=== PATIENT | female | born 1970 | race African-American/Black ===

== ENCOUNTER 2017-08-24 09:56 | Inpatient (IN) | payer OTHER ==
[2017-08-24 11:24] VITALS: BMI 28.4
--- NOTE | 2017-08-24 13:25 | HP ---
COWS - Scale Resting Pulse: 1= [place] 81-100 Sweatin=Flushed/Facial Moisture Restless Observation: 3= Extraneous Movement Pupil Size: 2= Moderately Dilated Bone or Joint Aches: 2= Severe Diffuse Aches Runny Nose/ Eye Tearin= Runny Nose/Eyes GI Upset > 30mins: 3= Vomiting/Diarrhea Tremor Observation: 2= Slight Tremor Visible Yawning Observation: 2= >3x During Session Anxiety or Irritability: 2=Irritable/Anxious Goose Flesh Skin: 0=Smooth Skin COWS Score: 21 Admission ROS BHS - HPI Chief Complaint: i need help to stop using heroin and cocaine Allergies/Adverse Reactions: Allergies Allergy/AdvReac Type Severity Reaction Status Date / Time No Known Allergies Allergy Verified 08/24/17 11:12 History of Present Illness: this 47 years old black female patient with heroin and cocaine dependence seeking detox,last treatment [facility] 2016 nicotine dependence asthma anxiety and depression longest period of sobriety 6 years Exam Limitations: No Limitations - Ebola screening Have you been sick,other than usual withdrawal symptoms: No - Review of Systems Constitutional: Loss of Appetite, Malaise, Night Sweats, Changes in sleep, Weakness EENT: reports: Tearing, Nose Congestion Respiratory: reports: No Symptoms reported, Other (asthma) Cardiac: reports: Palpitations GI: reports: Diarrhea, Nausea, Vomiting, Abdominal cramping : reports: No Symptoms Reported Musculoskeletal: reports: Back Pain, Joint Pain, Muscle Pain, Joint Stiffness Integumentary: reports: Dryness Neuro: reports: Headache, Tremors Endocrine: reports: No Symptoms Reported Hematology: reports: No Symptoms Reported Psychiatric: reports: No Sypmtoms Reported, Judgement Intact, Mood/Affect Appropiate, Orientated x3, Anxious, Depressed Patient History - Patient Medical History Hx Anemia: No Hx Asthma: Yes (on albuterol inhaler) Hx Chronic Obstructive Pulmonary Disease (COPD): No Hx Cancer: No Hx Cardiac Disorders: No Hx Congestive Heart Failure: No Hx Hypertension: Yes (no med) Hx Hypercholesterolemia: No Hx Pacemaker: No HX Cerebrovascular Accident: No Hx Seizures: No Hx Dementia: No Hx Diabetes: No Hx Gastrointestinal Disorders: No Hx Liver Disease: No Hx Genitourinary Disorders: No Hx Sexually Transmitted Disorders: No Hx Renal Disease (ESRD): No Hx Thyroid Disease: No Hx Human Immunodeficiency Virus (HIV): No (last 02/14 negative) Hx Hepatitis C: No Hx Depression: Yes (anxiety) Hx Suicide Attempt: No Hx Bipolar Disorder: No Hx Schizophrenia: No Other Medical History: no suicidal,no homicidal - Patient Surgical History Past Surgical History: Yes Hx Neurologic Surgery: No Hx Cataract Extraction: No Hx Cardiac Surgery: No Hx Lung Surgery: No Hx Breast Surgery: No Hx Breast Biopsy: No Hx Abdominal Surgery: No Hx Appendectomy: No Hx Cholecystectomy: No Hx Genitourinary Surgery: No Hx Section: No Hx Orthopedic Surgery: Yes (7yrs ago a titainium place to left toe.//torn maniscus) Other Surgical History: tonSillectomy at age 10. - PPD History Previous Implant?: Yes Documented Results: Negative w/proof Implanted On [facility] Admission?: Yes Date: 02/06/15 Results: 0 mm PPD to be Administered?: Yes - Reproductive History Patient is a Female of Child Bearing Age (11 -55 yrs old): Yes Last Menstrual Period: 07/31/17 Patient : No - Smoking Cessation Smoking history: Current every day smoker Have you smoked in the past 12 months: Yes Aproximately how many cigarettes per day: 10 Hx Chewing Tobacco Use: No Initiated information on smoking cessation: Yes 'Breaking Loose' booklet given: 08/24/17 - Substance & Tx. History Hx Alcohol Use: No Hx Substance Use: Yes Substance Use Type: Cocaine, Heroin Hx Substance Use Treatment: Yes ([facility] rehab 2016) - Substances Abused Heroin Route: Inhalation Frequency: Daily Amount used: 4 bags Age of first use: 29 Date of Last Use: 08/24/17 Cocaine Route: Inhalation Frequency: Daily Amount used: $50 Age of first use: 29 Date of Last Use: 08/23/17 Family Disease History - Family Disease History Family History: Denies Admission Physical Exam BHS - Vital Signs Vital Signs: Vital Signs - 24 hr 08/24/17 11:16 Temperature 97.2 F L Pulse Rate 95 H Respiratory 20 Rate Blood Pressure 124/90 - Physical General Appearance: Yes: Moderate Distress, Tremorous, Irritable, Sweating, Anxious HEENTM: Yes: Normal ENT Inspection, ALBA, Pharynx Normal Respiratory: Yes: Within Normal Limits, Lungs Clear, Normal Breath Sounds Neck: Yes: Within Normal Limits, Supple, Trachea in good position Breast: Yes: Breast Exam Deferred Cardiology: Yes: Within Normal Limits, Regular Rhythm, Regular Rate, S1, S2 Abdominal: Yes: Within Normal Limits, Normal Bowel Sounds, Non Tender, Soft Genitourinary: Yes: Within Normal Limits Back: Yes: Muscle Spasm Musculoskeletal: Yes: Back pain, Muscle Pain Extremities: Yes: Within Normal Limits, Normal Range of Motion, Tremors Neurological: Yes: pbx teacher II-XII NML intact, Fully Oriented, Alert, Motor Strength 5/5 Integumentary: Yes: Dry Lymphatic: Yes: Within Normal Limits - Diagnostic (1) Opioid dependence with withdrawal Current Visit: Yes Status: Chronic (2) Cocaine dependence Current Visit: Yes Status: Chronic Qualifiers: Substance use status: uncomplicated Qualified Code(s): F14.20 - Cocaine dependence, uncomplicated; F14.20 - Cocaine dependence, uncomplicated; F14.20 - Cocaine dependence, uncomplicated (3) PTSD (post-traumatic stress disorder) Current Visit: No Status: Chronic (4) Nicotine dependence Current Visit: Yes Status: Chronic Qualifiers: Nicotine product type: cigarettes Substance use status: uncomplicated Qualified Code(s): F17.210 - Nicotine dependence, cigarettes, uncomplicated; F17.210 - Nicotine dependence, cigarettes, uncomplicated (5) Asthma Current Visit: Yes Status: Chronic Qualifiers: Asthma severity: mild (6) Anxiety and depression Current Visit: Yes Status: Acute Cleared for Admission [facility] - Detox or Rehab [facility] Level of Care: Medically Managed Detox Regimen/Protocol: Methadone [facility] Breath Alcohol Content Breath Alcohol Content: 0 Urine Pregancy Test - Result Urine Test Results: Negative- NO Line Present Urine Drug Screen - Results Drug Screen Negative: No Urine Drug Screen Results: THC-Marijuana, WALTER-Cocaine, OPI-Opiates, OXY- Oxycodone
[2017-08-24] MEDS ORDERED: MAGNESIUM HYDROX 2400MG/30ML ORAL SUSPENSION 30 ML CUP PO PRN (13:46)
[2017-08-24] MEDS ORDERED: IBUPROFEN 400 MG TABLET (FP) PO PRN (13:46)
[2017-08-24] MEDS ORDERED: NICOTINE POLACRILEX 2 MG GUM BC PRN (13:46)
[2017-08-24] MEDS ORDERED: MAGNESIUM CITRATE 300 ML BOTTLE PO PRN (13:46)
[2017-08-24] MEDS ORDERED: hydrOXYzine PAMOATE 25 MG CAPSULE (FP) PO PRN (13:46)
[2017-08-24] MEDS ORDERED: diphenhydrAMINE HCL 50 MG CAPSULE PO PRN (13:46)
[2017-08-24] MEDS ORDERED: guaiFENesin/D-METHORPHAN HB 10 ML UNIT-DOSE CUPS PO PRN (13:46)
[2017-08-24] MEDS ORDERED: P-EPHED 60MG/TRIPROLIDI 2.5MG TABLET PO PRN (13:46)
[2017-08-24] MEDS ORDERED: MAG HYDROX/AL HYDROX/SIMETH 30 ML UNIT-DOSE CUP PO PRN (13:46)
[2017-08-24] MEDS ORDERED: ACETAMINOPHEN 325 MG TABLET (FP) PO PRN (13:46)
[2017-08-24] MEDS ORDERED: LOPERAMIDE HCL 2 MG CAPSULE PO PRN (13:46)
[2017-08-24] MEDS ORDERED: MENTHOL/PHENOL 1 EACH UD MM PRN (13:46)
[2017-08-24] MEDS ORDERED: ALBUTEROL SO4 18 GM HFA INHALER IH PRN (13:53)
[2017-08-24 14:14] LABS: HIV 1 & 2 AB NEGATIVE; HIV 1 AGp24 NEGATIVE
[2017-08-24] MEDS ORDERED: METHADONE HCL 10 MG TABLET (FOR DETOX USE ONLY) PO ONE ×2 (14:15→23:00)
--- NOTE | 2017-08-24 16:40 | CONSULT ---
[facility] Psychiatric Consult - Data Date of interview: 08/24/17 Admission source: [facility] Identifying data: Readmission to [facility] for this 47 y/o AA female seeking detox treatment on for heroin and cocaine dependence.Patient is single, a mother of four,domiciled (section 8),unemployed and supported on [facility] benefits. Substance Abuse History: Discussed in this session.Patient confirmed use of heroin and cocaine.See this [facility] report : Smoking history: Current every day smoker. Have you smoked in the past 12 months: Yes. Aproximately how many cigarettes per day: 10. Hx Chewing Tobacco Use: No. Initiated information on smoking cessation: Yes. 'Breaking Loose' booklet given: 08/24/17. - Substance & Tx. History. Hx Alcohol Use: No. Hx Substance Use: Yes. Substance Use Type : Cocaine, Heroin. Hx Substance Use Treatment: Yes ([facility] re[facility] 2016). - Substances Abused. Heroin. Route: Inhalation. Frequency: Daily. Amount used: 4 bags. Age of first use: 29. Date of Last Use: 08/24/17. Cocaine. Route: Inhalation. Frequency: Daily. Amount used: $50. Age of first use: 29. Date of Last Use: 08/23/17 Medical History: Consistent with bronchial asthma,hypertension and a history of orthosurgery for torn meniscus (left knee). Psychiatric History: Patient denies history of psychiatric hospitalizations.She reports a distant history of OPD care.Ms Carney indicates that she last took psychotropic medications (names not recalled) more than seven months ago.She mentions PTSD as her diagnosis." I used to see a psychiatrist in [place]." Patient is a poor and moderately sedated historian.No reported history of suicide attempts.Survey of pharmacy claims shows scripts for fluoxetine, sertraline,quetiapine and buspirone issued in .No recent pharmacy activity for psychotropic medications. Physical/Sexual Abuse/Trauma History: Not discussed.Patient declines. Additional Comment: Urine Drug Screen Results: THC-Marijuana, WALTER-Cocaine, OPI- Opiates, OXY-Oxycodone.Noted. Mental Status Exam - Mental Status Exam Alert and Oriented to: Time, Place, Person Cognitive Function: Grossly Intact Patient Appearance: Well Groomed Mood: Nervous Affect: Mood Congruent, Constricted Patient Behavior: Sedated (moderately sedated but conversant) Speech Pattern: Delayed, Slurred Voice Loudness: Normal Thought Process: Goal Oriented (follows instructions,performs simple tasks, gives coherent answers and asks pertinent questions) Thought Disorder: Not Present Hallucinations: Denies Suicidal Ideation: Denies Homicidal Ideation: Denies Insight/Judgement: Poor Sleep: Well (as per report) Appetite: Good (inquisitive about mealtimes schedule) Muscle strength/Tone: Normal Gait/Station: Other (slow but steady gait) Psychiatric Findings - Problem List ([place] 1, 2,3) (1) Opioid dependence with withdrawal Current Visit: Yes Status: Acute (2) Cocaine dependence Current Visit: Yes Status: Acute (3) Nicotine dependence Current Visit: Yes Status: Acute (4) Substance induced mood disorder Current Visit: Yes Status: Acute (5) Asthma Current Visit: Yes Status: Chronic - Initial Treatment Plan Initial Treatment Plan: Psychoeducation.Detoxification.Observation.
[2017-08-24] MEDS ORDERED: METHADONE HCL 10 MG TABLET (FOR DETOX USE ONLY) ONE (17:01)
[2017-08-24] MEDS: diazePAM 5 MG TABLET PO PRN (18:01)
[2017-08-24 22:23] LABS: URINE APPEARANCE TURBID; URINE BILIRUBIN NEGATIVE (NEGATIVE); URINE BLOOD NEGATIVE (NEGATIVE); URINE COLOR AMBER; URINE GLUCOSE (UA) NEGATIVE (NEGATIVE); URINE KETONE NEGATIVE (NEGATIVE); URINE NITRITE NEGATIVE (NEGATIVE); URINE PROTEIN 1+ (NEGATIVE); URINE UROBILINOGEN NEGATIVE mg/dL (0.2-1.0)
[2017-08-24] MEDS: THIAMINE HCL 100 MG TABLET (FP) PO SCH (22:24)
[2017-08-24 23:48] LABS: URINE BACTERIA MANY /hpf (NONE SEEN); URINE MUCUS 3+; URINE WBC MODERATE /hpf (3-5)
[2017-08-25] MEDS ORDERED: METHADONE HCL 10 MG TABLET (FOR DETOX USE ONLY) PO ONE (10:00)
[2017-08-25 10:03] LABS: MCH 29.8 pg (25.7-33.7); MCHC 32.2 g/dl (32.0-36.0); MEAN CELL VOLUME 92.3 fl (80-96); MEAN PLT VOLUME 10.5 fl (7.5-11.1); PLATELET COUNT 268 K/MM3 (134-434); RDW 14.5 % (11.6-15.6); WHITE BLOOD COUNT 9.3 K/mm3 (4.0-10.0)
[2017-08-25 10:31] LABS: ALBUMIN 3.6 g/dl (3.4-5.0); ANION GAP 7 (8-16); CALCIUM 8.5 mg/dL (8.5-10.1); CO2 30 mmol/L (21-32); GLUCOSE,RANDOM 94 mg/dL (74-106)
[2017-08-25 10:35] LABS: ALK PHOS 115 U/L (45-117); BILIRUBIN,TOTAL 0.3 mg/dL (0.2-1.0); CREATININE 0.9 mg/dL (0.55-1.02); SGOT/AST 16 U/L (15-37); SGPT/ALT 11 U/L (12-78); TOT PROT 7.5 g/dl (6.4-8.2)
[2017-08-25] MEDS: PRENATAL VITAMINS W/ FOLIC ACID TABLET (FP) PO SCH (10:47)
[2017-08-25] MEDS: diazePAM 5 MG TABLET PO PRN ×2 (10:47→22:56)
[2017-08-25] MEDS: NICOTINE 21 MG/24 HOURS TOPICAL PATCH TD SCH (10:47)
--- NOTE | 2017-08-25 10:48 | EKG ---
Test Reason : Blood Pressure : / mmHG Vent. Rate : 068 BPM Atrial Rate : 068 BPM P-R Int : 166 ms QRS Dur : 098 ms QT Int : 410 ms P-R-T Axes : 074 076 054 degrees QTc Int : 435 ms NORMAL SINUS RHYTHM WITH SINUS ARRHYTHMIA NORMAL ECG NO PREVIOUS ECGS AVAILABLE Confirmed by HECTOR TILLMAN, ALISHA ([id number]) on 08/25/2017 10:47:29 AM Referred By: Confirmed By:ALISHA YOUNG MD
[2017-08-25 10:50] LABS: URINE LEUK ESTERASE 1+ (NEGATIVE)
--- NOTE | 2017-08-25 11:13 | PN ---
S COWS - Scale Resting Pulse: 0= [place] 80 or Below Sweatin=Flushed/Facial Moisture Restless Observation: 1= Difficult to Sit Still Pupil Size: 0= Normal to Room Light Bone or Joint Aches: 2= Severe Diffuse Aches Runny Nose/ Eye Tearin= Nasal Congestion GI Upset > 30mins: 2= Nausea/Diarrhea Tremor Observation of Outstretched Hands: 2= Slight Tremor Visible Yawning Observation: 2= >3x During Session Anxiety or Irritability: 2=Irritable/Anxious Goose Flesh Skin: 3=Piloerection COWS Score: 17 BHS Progress Note (SOAP) Subjective: sweats shakes interrupted sleep agitation anxiety body aches Objective: 08/25/17 11:11 Vital Signs Temperature 99.8 F H 08/25/17 10:12 Pulse Rate 62 08/25/17 10:12 Respiratory Rate 16 08/25/17 10:12 Blood Pressure 110/67 08/25/17 10:12 O2 Sat by Pulse Oximetry (%) Laboratory Tests 08/24/17 08/24/17 08/25/17 11:50 22:10 06:00 WBC 9.3 D RBC 4.68 Hgb 13.9 D Hct 43.2 MCV 92.3 MCH 29.8 MCHC 32.2 RDW 14.5 Plt Count 268 D MPV 10.5 Sodium Potassium Chloride Carbon Dioxide Anion Gap BUN Creatinine Creat Clearance w eGFR Random Glucose Calcium Total Bilirubin AST ALT Alkaline Phosphatase Total Protein Albumin Urine Color Xochitl Urine Appearance Turbid Urine pH 5.0 Ur Specific [place] >= 1.030 H Urine Protein 1+ H Urine Glucose (UA) Negative Urine Ketones Negative Urine Blood Negative Urine Nitrite Negative Urine Bilirubin Negative Urine Urobilinogen Negative Ur Leukocyte Esterase 1+ H Urine WBC Moderate Ur Epithelial Cells Moderate Urine Bacteria Many Urine Mucus 3+ Urine Other See comment HIV 1&2 Antibody Screen Negative HIV P24 Antigen Negative 08/25/17 06:00 WBC RBC Hgb Hct MCV MCH MCHC RDW Plt Count MPV Sodium 138 Potassium 3.2 L D Chloride 101 Carbon Dioxide 30 Anion Gap 7 L BUN 7 D Creatinine 0.9 D Creat Clearance w eGFR > 60 Random Glucose 94 D Calcium 8.5 Total Bilirubin 0.3 AST 16 ALT 11 L Alkaline Phosphatase 115 Total Protein 7.5 Albumin 3.6 Urine Color Urine Appearance Urine pH Ur Specific [place] Urine Protein Urine Glucose (UA) Urine Ketones Urine Blood Urine Nitrite Urine Bilirubin Urine Urobilinogen Ur Leukocyte Esterase Urine WBC Ur Epithelial Cells Urine Bacteria Urine Mucus Urine Other HIV 1&2 Antibody Screen HIV P24 Antigen clue cells noted on u/a; flagyl ordered repeat u/a aaox3 lying in bed no acute distress Assessment: 08/25/17 11:13 withdrawal sx Plan: continue detox increase fluids f/u pending labs
[2017-08-25] MEDS ORDERED: FLU VACCINE QUAD 60 MCG/0.5 ML (MDV 17-18) IM ONE (12:00)
[2017-08-25] MEDS: POTASSIUM CHLORIDE TABS 20 MEQ TABLET.ER (FP) PO SCH (13:20)
[2017-08-25] MEDS: metroNIDAZOLE 250 MG TABLET PO SCH ×2 (13:22→22:54)
[2017-08-25] MEDS: THIAMINE HCL 100 MG TABLET (FP) PO SCH (22:54)
[2017-08-26] MEDS: diazePAM 5 MG TABLET PO PRN ×2 (03:56→11:10)
[2017-08-26] MEDS: metroNIDAZOLE 250 MG TABLET PO SCH ×2 (06:04→14:34)
[2017-08-26] MEDS ORDERED: METHADONE HCL 5 MG TABLET (FOR DETOX USE ONLY) PO ONE (10:00)
[2017-08-26] MEDS: POTASSIUM CHLORIDE TABS 20 MEQ TABLET.ER (FP) PO SCH (11:06)
[2017-08-26] MEDS: PRENATAL VITAMINS W/ FOLIC ACID TABLET (FP) PO SCH (11:06)
--- NOTE | 2017-08-26 11:06 | PN ---
BHS COWS - Scale Resting Pulse: 0= [place] 80 or Below Sweatin=Flushed/Facial Moisture Restless Observation: 1= Difficult to Sit Still Pupil Size: 1= Pupils >than Normal Bone or Joint Aches: 2= Severe Diffuse Aches Runny Nose/ Eye Tearin= Nasal Congestion GI Upset > 30mins: 2= Nausea/Diarrhea Tremor Observation of Outstretched Hands: 2= Slight Tremor Visible Yawning Observation: 0= None Anxiety or Irritability: 2=Irritable/Anxious Goose Flesh Skin: 0=Smooth Skin COWS Score: 13 BHS Progress Note (SOAP) Subjective: interrupted sleep, sweats, shakes Objective: 08/26/17 11:08 Vital Signs Temperature 98.2 F 08/26/17 06:00 Pulse Rate 70 08/26/17 06:00 Respiratory Rate 18 08/26/17 06:00 Blood Pressure 131/78 08/26/17 06:00 O2 Sat by Pulse Oximetry (%) Laboratory Tests 08/24/17 08/24/17 08/25/17 11:50 22:10 06:00 WBC 9.3 D RBC 4.68 Hgb 13.9 D Hct 43.2 MCV 92.3 MCH 29.8 MCHC 32.2 RDW 14.5 Plt Count 268 D MPV 10.5 Sodium Potassium Chloride Carbon Dioxide Anion Gap BUN Creatinine Creat Clearance w eGFR Random Glucose Calcium Total Bilirubin AST ALT Alkaline Phosphatase Total Protein Albumin Urine Color Xochitl Urine Appearance Turbid Urine pH 5.0 Ur Specific [place] >= 1.030 H Urine Protein 1+ H Urine Glucose (UA) Negative Urine Ketones Negative Urine Blood Negative Urine Nitrite Negative Urine Bilirubin Negative Urine Urobilinogen Negative Ur Leukocyte Esterase 1+ H Urine WBC Moderate Ur Epithelial Cells Moderate Urine Bacteria Many Urine Mucus 3+ Urine Other See comment RPR Titer HIV 1&2 Antibody Screen Negative HIV P24 Antigen Negative 08/25/17 08/25/17 06:00 06:00 WBC RBC Hgb Hct MCV MCH MCHC RDW Plt Count MPV Sodium 138 Potassium 3.2 L D Chloride 101 Carbon Dioxide 30 Anion Gap 7 L BUN 7 D Creatinine 0.9 D Creat Clearance w eGFR > 60 Random Glucose 94 D Calcium 8.5 Total Bilirubin 0.3 AST 16 ALT 11 L Alkaline Phosphatase 115 Total Protein 7.5 Albumin 3.6 Urine Color Urine Appearance Urine pH Ur Specific [place] Urine Protein Urine Glucose (UA) Urine Ketones Urine Blood Urine Nitrite Urine Bilirubin Urine Urobilinogen Ur Leukocyte Esterase Urine WBC Ur Epithelial Cells Urine Bacteria Urine Mucus Urine Other RPR Titer Nonreactive HIV 1&2 Antibody Screen HIV P24 Antigen 08/26/17 11:10 pt aox3 in bed eatting in nad Plan: withdrawal sx's plan - cont detox increase fluds cont flagyl
[2017-08-26] MEDS: NICOTINE 21 MG/24 HOURS TOPICAL PATCH TD SCH (11:07)
[2017-08-26 19:20] VITALS: BP 121/86; PULSE 69; TEMP 97.3
[2017-08-27] MEDS ORDERED: METHADONE HCL 5 MG TABLET (FOR DETOX USE ONLY) PO ONE (10:00)
[2017-08-28] MEDS ORDERED: METHADONE HCL 10 MG TABLET (FOR DETOX USE ONLY) PO ONE (10:00)
[2017-08-29] MEDS ORDERED: METHADONE HCL 5 MG TABLET (FOR DETOX USE ONLY) PO ONE (06:00)
== END 2017-08-26 19:51 | disposition left against medical advice (07) | DRG 770 ==
LOC: YASAS 09:56 → Y6N 13:23
PROVIDERS: ADMIT Internal Medicine; ATTEND Internal Medicine
PROC: HZ2ZZZZ Detoxification Services for Substance Abuse Treatment (ICD-10-PCS; principal; 2017-08-24)
DX: F11.23 Opioid dependence with withdrawal (principal); F14.20 Cocaine dependence, uncomplicated; F17.210 Nicotine dependence, cigarettes, uncomplicated; F43.10 Post-traumatic stress disorder, unspecified; F19.24 Other psychoactive substance dependence with psychoactive substance-induced mood disorder; F41.8 Other specified anxiety disorders; J45.20 Mild intermittent asthma, uncomplicated
CPT/HCPCS: 36415; 80053; 81003; 81015; 85027; 86593; 87389; 90688; 93005; 93010; G0008

== ENCOUNTER 2020-07-21 19:06 | Inpatient (IN) | payer OTHER ==
[2020-07-21 20:18] VITALS: BMI 29.7
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
--- NOTE | 2020-07-21 21:28 | HP ---
COWS - Scale Resting Pulse: 0= [place] 80 or Below Sweatin= Chills/Flushing Restless Observation: 0= Sits Still Pupil Size: 0= Normal to Room Light Bone or Joint Aches: 1= Mild Discomfort Runny Nose/ Eye Tearin= Nasal Congestion GI Upset > 30mins: 0= None Tremor Observation: 0= None Yawning Observation: 0= None Anxiety or Irritability: 0= None Goose Flesh Skin: 0=Smooth Skin COWS Score: 3 CIWA Score Nausea/Vomitin-No Nausea/No Vomiting Muscle Tremors: None Anxiety: 1-Mildly Anxious Agitation: 0-Normal Activity Paroxysmal Sweats: 1-Minimal Palms Moist Orientation: 1-Uncertain about Date Tacttile Disturbances: 0-None Auditory Disturbances: 0-None Visual Disturbances: 0-None Headache: 0-None Present CIWA-Ar Total Score: 3 - Admission Criteria [facility] Guidelines: Admission for Medically Managed Detox: Requires at least one of the followin. CIWA greater than 12 2. Seizures within the past 24 hours 3. Delirium tremens within the past 24 hours 4. Hallucinations within the past 24 hours 5. Acute intervention needed for co occurring medical disorder 6. Acute intervention needed for co occurring psychiatric disorder 7. Severe withdrawal that cannot be handled at a lower level of care (continued vomiting, continued diarrhea, abnormal vital signs) requiring intravenous medication and/or fluids 8. Admitting History and Physical - Past Medical History ...LMP: 07/31/17 - Smoking History Smoking history: Current every day smoker Have you smoked in the past 12 months: Yes Aproximately how many cigarettes per day: 10 - Alcohol/Substance Use Hx Alcohol Use: No Admission [facility] Allergies/Adverse Reactions: Allergies Allergy/AdvReac Type Severity Reaction Status Date / Time No Known Allergies Allergy Verified 07/21/20 21:55 History of Present Illness: 50 y.o. female requesting detox from alcohol and opiate use, reports latest use was 12-1 pm today 7 bags of heroin via inhalation , first age of use 10-12 years ago , with intermittent periods of sobriety , denies OD . Prior MMTP , wants to return to a methadone program . reports illicit Methadone use 130 mg , latest 2 days ago . pt is poor hstorian due to intoxication , rowsy , falls asleep frequently during interview, awakened by verbal stimuli. cocaine - since 20 yrs ago , denies IV use . alcohol 1/2 pint 4-5 x /week , reports tremors if not drinking , unsure if she ever had seizure , states she had a blackout from heroin use . tobacco - 1/2 ppd does not want NRT PMHX : denies PSHX : denies PSych : denies Exam Limitations: Clinical Condition, Intoxication - Review of Systems Constitutional: No Symptoms Reported EENT: reports: No Symptoms Reported, Other (glasses) Respiratory: reports: SOB with Exertion Cardiac: reports: No Symptoms Reported GI: reports: No Symptoms Reported : reports: No Symptoms Reported Musculoskeletal: reports: Back Pain (chronic LBP), Joint Pain (right hip - chronic) Integumentary: reports: No Symptoms Reported Neuro: reports: No Symptoms reported Endocrine: reports: No Symptoms Reported Hematology: reports: No Symptoms Reported Psychiatric: reports: Disorientated Patient History - Patient Medical History Hx Anemia: No Hx Asthma: Yes (on albuterol inhaler) Hx Chronic Obstructive Pulmonary Disease (COPD): No Hx Cancer: No Hx Cardiac Disorders: No Hx Congestive Heart Failure: No Hx Hypertension: Yes (no med) Hx Hypercholesterolemia: No Hx Pacemaker: No HX Cerebrovascular Accident: No Hx Seizures: No Hx Dementia: No Hx Diabetes: No Hx Gastrointestinal Disorders: No Hx Liver Disease: No Hx Genitourinary Disorders: No Hx Sexually Transmitted Disorders: No Hx Renal Disease (ESRD): No Hx Thyroid Disease: No Hx Human Immunodeficiency Virus (HIV): No (last 02/14 negative) Hx Hepatitis C: No Hx Depression: Yes (anxiety) Hx Suicide Attempt: No Hx Bipolar Disorder: No Hx Schizophrenia: No - Patient Surgical History Past Surgical History: Yes Hx Neurologic Surgery: No Hx Cataract Extraction: No Hx Cardiac Surgery: No Hx Lung Surgery: No Hx Breast Surgery: No Hx Breast Biopsy: No Hx Abdominal Surgery: No Hx Appendectomy: No Hx Cholecystectomy: No Hx Genitourinary Surgery: No Hx Section: No Hx Orthopedic Surgery: Yes (7yrs ago a titainium place to left toe.//torn maniscus) Other Surgical History: tonSillectomy at age 10. - PPD History Date: 02/06/15 Results: 0 mm - Reproductive History Last Menstrual Period: 07/31/17 - Smoking Cessation Smoking history: Current every day smoker Have you smoked in the past 12 months: Yes Aproximately how many cigarettes per day: 10 Hx Chewing Tobacco Use: No Initiated information on smoking cessation: Yes 'Breaking Loose' booklet given: 07/22/20 Admission Physical Exam BHS - Vital Signs Vital Signs: Vital Signs - 24 hr 07/21/20 20:16 Temperature 97.6 F Pulse Rate 66 Respiratory 19 Rate Blood Pressure 141/89 - Physical General Appearance: Yes: Intoxicated, Other (drowsy) HEENTM: Yes: EOMI, Hearing grossly Normal, Normocephalic, Nasal Congestion, Rhinorrhea, Muffled/Hoarse Voice Respiratory: Yes: Chest Non-Tender, Lungs Clear, Normal Breath Sounds, No Respiratory Distress, No Accessory Muscle Use Neck: Yes: No masses,lesions,Nodules, Trachea in good position Cardiology: Yes: Regular Rhythm, Regular Rate, S1, S2 Abdominal: Yes: Non Tender, Soft Back: Yes: Normal Inspection Neurological: Yes: Alert, Depressed Affect Integumentary: Yes: Warm - Diagnostic (1) Cocaine dependence Current Visit: Yes Status: Chronic Qualifiers: Substance use status: uncomplicated Qualified Code(s): F14.20 - Cocaine dependence, uncomplicated (2) Nicotine dependence Current Visit: Yes Status: Chronic Qualifiers: Nicotine product type: cigarettes (3) Opioid intoxication Current Visit: Yes Status: Acute Qualifiers: Complication of substance-induced condition: uncomplicated Qualified Code(s): F11.920 - Opioid use, unspecified with intoxication, uncomplicated (4) Alcohol dependence Current Visit: Yes Status: Chronic Qualifiers: Substance use status: uncomplicated Qualified Code(s): F10.20 - Alcohol dependence, uncomplicated Breathalyzer - Breathalyzer Breathalyzer: 0.023 Urine Drug Screen - Test Device Lot number: [id number] Expiration date: 06/03/22 - Control Is test valid?: Yes - Results Drug screen NEGATIVE: No Urine drug screen results: THC-Marijuana, WALTER-Cocaine, FEN-Fentanyl, MOP- Opiates, MTD-Methadone Inpatient Rehab Admission - Rehab Decision to Admit Inpatient rehab admission?: No
[2020-07-21] MEDS ORDERED: METHOCARBAMOL 500 MG TABLET PO PRN (21:38)
[2020-07-21] MEDS ORDERED: MAG HYDROX/AL HYDROX/SIMETH 30 ML UNIT-DOSE CUP PO PRN (21:38)
[2020-07-21] MEDS ORDERED: MAGNESIUM HYDROX 2400MG/30ML ORAL SUSPENSION 30 ML CUP PO PRN (21:38)
[2020-07-21] MEDS ORDERED: BISMUTH SUBSALICYLATE 524 MG/30 ML UD PO PRN (21:38)
[2020-07-21] MEDS ORDERED: guaiFENesin 200 MG/10 ML 10 ML UNIT-DOSE CUPS PO PRN (21:38)
[2020-07-21] MEDS ORDERED: MELATONIN 5 MG TABLETS PO PRN (21:38)
[2020-07-21] MEDS ORDERED: ONDANSETRON *ODT* 4 MG TABLET SL PRN (21:38)
[2020-07-21] MEDS ORDERED: MENTHOL/PHENOL 1 EACH UD MM PRN (21:38)
[2020-07-21] MEDS ORDERED: IBUPROFEN 400 MG TABLET (FP) PO PRN (21:38)
[2020-07-21] MEDS ORDERED: ACETAMINOPHEN 325 MG TABLET (FP) PO PRN ×2 (21:38)
[2020-07-21] MEDS ORDERED: P-EPHED 60MG/TRIPROLIDI 2.5MG TABLET PO PRN (21:38)
[2020-07-21] MEDS ORDERED: hydrOXYzine PAMOATE 25 MG CAPSULE (FP) PO PRN (21:38)
[2020-07-21] MEDS ORDERED: MAGNESIUM CITRATE 300 ML BOTTLE PO PRN (21:38)
[2020-07-21] MEDS ORDERED: chlordiazePOXIDE HCL 25 MG CAPSULE PO PRN (21:40)
[2020-07-21] MEDS ORDERED: ALBUTEROL SO4 HFA INHALER IH PRN (21:45)
[2020-07-21] MEDS: chlordiazePOXIDE HCL 25 MG CAPSULE PO SCH (22:56)
[2020-07-21] MEDS: THIAMINE HCL 100 MG TABLET (FP) PO SCH (22:57)
[2020-07-21] MEDS: FLUTICASONE PROP 0.05% 16 GM NASAL SPRAY NS SCH (22:59)
[2020-07-22] MEDS: chlordiazePOXIDE HCL 25 MG CAPSULE PO SCH ×4 (06:45→22:28)
--- NOTE | 2020-07-22 09:44 | EKG ---
Test Reason : Blood Pressure : / mmHG Vent. Rate : 075 BPM Atrial Rate : 075 BPM P-R Int : 170 ms QRS Dur : 106 ms QT Int : 426 ms P-R-T Axes : 073 074 065 degrees QTc Int : 475 ms NORMAL SINUS RHYTHM NORMAL ECG WHEN COMPARED WITH ECG OF 24-AUG-2017 15:09, NO SIGNIFICANT CHANGE WAS FOUND Confirmed by Lio Ledesma ([id number]) on 07/22/2020 9:43:35 AM Referred By: Confirmed By:Lio Ledesma
[2020-07-22] MEDS ORDERED: METHADONE HCL 10 MG TABLET (FOR DETOX USE ONLY) PO ONE (10:00)
[2020-07-22 10:26] LABS: HEMATOCRIT 43.4 % (32.4-45.2); HEMOGLOBIN 14.2 GM/dL (10.7-15.3); MCH 30.3 pg (25.7-33.7); MCHC 32.8 g/dl (32.0-36.0); MEAN CELL VOLUME 92.3 fl (80-96); MEAN PLT VOLUME 9.3 fl (7.5-11.1); PLATELET COUNT 343 K/MM3 (134-434); RDW 14.3 % (11.6-15.6); WHITE BLOOD COUNT 7.1 K/mm3 (4.0-10.0)
--- NOTE | 2020-07-22 10:26 | PN ---
S CIWA - CIWA Score Nausea/Vomitin-Mild Nausea/No Vomiting Muscle Tremors: 4-Moderate,w/Arms Extend Anxiety: 4-Mod. Anxious/Guarded Agitation: 1-Slight > Activity Paroxysmal Sweats: No Perspiration Orientation: 0-Oriented Tacttile Disturbances: 0-None Auditory Disturbances: 0-None Visual Disturbances: 0-None Headache: 2-Mild CIWA-Ar Total Score: 12 BHS COWS - Scale Resting Pulse: 0= [place] 80 or Below Sweatin= Chills/Flushing Restless Observation: 0= Sits Still Pupil Size: 1= Pupils >than Normal Bone or Joint Aches: 1= Mild Discomfort Runny Nose/ Eye Tearin= None GI Upset > 30mins: 2= Nausea/Diarrhea Tremor Observation of Outstretched Hands: 2= Slight Tremor Visible Yawning Observation: 0= None Anxiety or Irritability: 2=Irritable/Anxious Goose Flesh Skin: 3=Piloerection COWS Score: 12 S Progress Note (SOAP) Subjective: 50 years old female was admitted on 07/21/20 for alcohol and opiate withdrawal sx management treating with librium and methadone detox regiments general body aches tylenal 650mg po x 1 robaxin 750mg po x 1 ms fernandez received 30mg of methadone round 10 am today resting in bed Objective: 07/22/20 10:57 Vital Signs - 24 hr 07/21/20 07/21/20 07/21/20 20:16 20:34 21:55 Temperature 97.6 F 96.6 F L 97.6 F Pulse Rate 66 75 66 Respiratory 19 17 19 Rate Blood Pressure 141/89 121/89 141/89 O2 Sat by Pulse 100 Oximetry (%) 07/21/20 07/22/20 22:50 08:40 Temperature 97.5 F L 96.9 F L Pulse Rate 69 64 Respiratory 18 18 Rate Blood Pressure 116/83 119/71 O2 Sat by Pulse 95 Oximetry (%) Laboratory Tests 07/21/20 07/22/20 07/22/20 19:50 08:00 08:00 WBC 7.1 RBC 4.70 Hgb 14.2 Hct 43.4 MCV 92.3 MCH 30.3 MCHC 32.8 RDW 14.3 Plt Count 343 D MPV 9.3 D Sodium 143 Potassium 3.8 Chloride 106 Carbon Dioxide 32 Anion Gap 5 L BUN 11.0 Creatinine 1.1 Est GFR (CKD-EPI)AfAm 67.32 Est GFR (CKD-EPI)NonAf 58.08 Random Glucose 86 Calcium 8.4 L Total Bilirubin 0.4 AST 16 ALT 11 L Alkaline Phosphatase 129 H Total Protein 6.9 Albumin 3.0 L POC Urine HCG, Qual Negative covid pending Assessment: 07/22/20 10:57 alcohol and opiate withdrawal Plan: librium and methadone regiments
[2020-07-22 10:29] LABS: BILIRUBIN,TOTAL 0.4 mg/dL (0.2-1); CALCIUM 8.4 mg/dL (8.5-10.1); CREATININE 1.1 mg/dL (0.55-1.3); POTASSIUM 3.8 mmol/L (3.5-5.1); TOT PROT 6.9 g/dl (6.4-8.2)
[2020-07-22] MEDS: FLUTICASONE PROP 0.05% 16 GM NASAL SPRAY NS SCH ×2 (10:45→22:27)
[2020-07-22] MEDS: PRENATAL VITAMINS W/ FOLIC ACID TABLET (FP) PO SCH (10:46)
[2020-07-22] MEDS ORDERED: ACETAMINOPHEN 325 MG TABLET (FP) PO ONE (10:54)
[2020-07-22] MEDS ORDERED: METHOCARBAMOL 750 MG TAB PO ONE (10:55)
[2020-07-22] MEDS: THIAMINE HCL 100 MG TABLET (FP) PO SCH (22:27)
[2020-07-23] MEDS: chlordiazePOXIDE HCL 25 MG CAPSULE PO SCH ×4 (06:19→22:40)
[2020-07-23] MEDS ORDERED: METHADONE HCL 5 MG TABLET (FOR DETOX USE ONLY) ONE (09:46)
[2020-07-23] MEDS ORDERED: METHADONE HCL 10 MG TABLET (FOR DETOX USE ONLY) ONE (09:46)
[2020-07-23] MEDS ORDERED: METHADONE (DETOX) 20 MG, METHADONE (DETOX) 5 MG PO ONE (10:00)
[2020-07-23] MEDS ORDERED: METHADONE HCL 5 MG TABLET (FOR DETOX USE ONLY) PO ONE (10:00)
[2020-07-23] MEDS: FLUTICASONE PROP 0.05% 16 GM NASAL SPRAY NS SCH ×2 (10:45→22:42)
[2020-07-23] MEDS: PRENATAL VITAMINS W/ FOLIC ACID TABLET (FP) PO SCH (10:45)
--- NOTE | 2020-07-23 13:11 | PN ---
[facility] CIWA - CIWA Score Nausea/Vomitin-Mild Nausea/No Vomiting Muscle Tremors: 2 Anxiety: 2 Agitation: 1-Slight > Activity Paroxysmal Sweats: No Perspiration Orientation: 0-Oriented Tacttile Disturbances: 0-None Auditory Disturbances: 0-None Visual Disturbances: 1-Very Mild Sensitivity Headache: 2-Mild CIWA-Ar Total Score: 9 BHS COWS - Scale Resting Pulse: 0= [place] 80 or Below Sweatin= No chills or Flushing Restless Observation: 0= Sits Still Pupil Size: 1= Pupils >than Normal Bone or Joint Aches: 1= Mild Discomfort Runny Nose/ Eye Tearin= Nasal Congestion GI Upset > 30mins: 2= Nausea/Diarrhea Tremor Observation of Outstretched Hands: 1= Tremor [place], Not Seen Yawning Observation: 1= 1-2x During Session Anxiety or Irritability: 2=Irritable/Anxious Goose Flesh Skin: 0=Smooth Skin COWS Score: 9 [facility] Progress Note (SOAP) Subjective: 50 years old female was admitted on 07/21/20 for alcohol and opiate withdrawal sx management treating with librium and methadone detox regiments ms fernandez states that she has chronic sinusitis and currently has posterior nasal mucopurulent drainage coughing when lying down facial fullness and nasal congestion "can not smell anythings" facial sinuses tender to palpate with headache amoxicillin 500 mg po bid x 5 days Objective: 07/23/20 13:21 Vital Signs - 24 hr 07/22/20 07/22/20 07/22/20 17:07 19:07 20:48 Temperature 97.3 F L 97.3 F L Pulse Rate 73 60 62 Respiratory 20 18 18 Rate Blood Pressure 152/97 107/74 111/64 O2 Sat by Pulse 96 Oximetry (%) 07/23/20 07/23/20 07/23/20 06:31 08:45 12:30 Temperature 97.0 F L 97.5 F L 97.6 F Pulse Rate 69 65 64 Respiratory 16 18 16 Rate Blood Pressure 123/75 104/63 124/76 O2 Sat by Pulse 99 99 96 Oximetry (%) Laboratory Tests 07/21/20 07/21/20 07/22/20 10:20 19:50 08:00 WBC RBC Hgb Hct MCV MCH MCHC RDW Plt Count MPV Sodium Potassium Chloride Carbon Dioxide Anion Gap BUN Creatinine Est GFR (CKD-EPI)AfAm Est GFR (CKD-EPI)NonAf Random Glucose Calcium Total Bilirubin AST ALT Alkaline Phosphatase Total Protein Albumin POC Urine HCG, Qual Negative Syphilis Serology Reactive A* RPR Titer COVID-19 ([facility]) Not detected 07/22/20 07/22/20 07/22/20 08:00 08:00 08:00 WBC 7.1 RBC 4.70 Hgb 14.2 Hct 43.4 MCV 92.3 MCH 30.3 MCHC 32.8 RDW 14.3 Plt Count 343 D MPV 9.3 D Sodium 143 Potassium 3.8 Chloride 106 Carbon Dioxide 32 Anion Gap 5 L BUN 11.0 Creatinine 1.1 Est GFR (CKD-EPI)AfAm 67.32 Est GFR (CKD-EPI)NonAf 58.08 Random Glucose 86 Calcium 8.4 L Total Bilirubin 0.4 AST 16 ALT 11 L Alkaline Phosphatase 129 H Total Protein 6.9 Albumin 3.0 L POC Urine HCG, Qual Syphilis Serology RPR Titer Reactive 1:1 H D COVID-19 ([facility]OK) 07/23/20 13:23 syphilis contacted treated Assessment: 07/23/20 13:23 alcohol and opiate withdrawal Plan: llibrium and methadone regiments
[2020-07-23] MEDS: AMOXICILLIN 500 MG CAPSULE (FP) PO SCH ×2 (14:20→22:39)
[2020-07-23] MEDS: THIAMINE HCL 100 MG TABLET (FP) PO SCH (22:40)
[2020-07-24] MEDS ORDERED: chlordiazePOXIDE HCL 10 MG CAPSULE PO PRN
[2020-07-24] MEDS: chlordiazePOXIDE HCL 10 MG CAPSULE PO SCH ×4 (06:09→22:33)
[2020-07-24] MEDS ORDERED: METHADONE HCL 10 MG TABLET (FOR DETOX USE ONLY) PO ONE (10:00)
[2020-07-24] MEDS: AMOXICILLIN 500 MG CAPSULE (FP) PO SCH ×2 (10:38→22:33)
[2020-07-24] MEDS: PRENATAL VITAMINS W/ FOLIC ACID TABLET (FP) PO SCH (10:38)
[2020-07-24] MEDS: FLUTICASONE PROP 0.05% 16 GM NASAL SPRAY NS SCH ×2 (10:39→22:33)
--- NOTE | 2020-07-24 11:02 | PN ---
[facility] CIWA - CIWA Score Nausea/Vomitin-Mild Nausea/No Vomiting Muscle Tremors: 2 Anxiety: 2 Agitation: 2 Paroxysmal Sweats: No Perspiration Orientation: 0-Oriented Tacttile Disturbances: 1-Very Mild Itch/Numbness Auditory Disturbances: 0-None Visual Disturbances: 0-None Headache: 2-Mild CIWA-Ar Total Score: 10 BHS COWS - Scale Resting Pulse: 0= [place] 80 or Below Sweatin= No chills or Flushing Restless Observation: 0= Sits Still Pupil Size: 1= Pupils >than Normal Bone or Joint Aches: 2= Severe Diffuse Aches Runny Nose/ Eye Tearin= Nasal Congestion GI Upset > 30mins: 1= Stomach Cramp Tremor Observation of Outstretched Hands: 2= Slight Tremor Visible Yawning Observation: 1= 1-2x During Session Anxiety or Irritability: 2=Irritable/Anxious Goose Flesh Skin: 0=Smooth Skin COWS Score: 10 BHS Progress Note (SOAP) Subjective: alert,irritable,anxious,interrupted sleep,tremor,pain in the body and back,aching,nausea Objective: 07/24/20 17:17 Vital Signs Temperature 97.6 F 07/24/20 12:52 Pulse Rate 76 07/24/20 12:52 Respiratory Rate 18 07/24/20 12:52 Blood Pressure 131/86 07/24/20 12:52 O2 Sat by Pulse Oximetry (%) 98 07/24/20 12:52 Laboratory Last Values WBC 7.1 K/mm3 (4.0-10.0) 07/22/20 08:00 RBC 4.70 M/mm3 (3.60-5.2) 07/22/20 08:00 Hgb 14.2 GM/dL (10.7-15.3) 07/22/20 08:00 Hct 43.4 % (32.4-45.2) 07/22/20 08:00 MCV 92.3 fl (80-96) 07/22/20 08:00 MCH 30.3 pg (25.7-33.7) 07/22/20 08:00 MCHC 32.8 g/dl (32.0-36.0) 07/22/20 08:00 RDW 14.3 % (11.6-15.6) 07/22/20 08:00 Plt Count 343 K/MM3 (134-434) D 07/22/20 08:00 MPV 9.3 fl (7.5-11.1) D 07/22/20 08:00 Sodium 143 mmol/L (136-145) 07/22/20 08:00 Potassium 3.8 mmol/L (3.5-5.1) 07/22/20 08:00 Chloride 106 mmol/L (98-107) 07/22/20 08:00 Carbon Dioxide 32 mmol/L (21-32) 07/22/20 08:00 Anion Gap 5 MMOL/L (8-16) L 07/22/20 08:00 BUN 11.0 mg/dL (7-18) 07/22/20 08:00 Creatinine 1.1 mg/dL (0.55-1.3) 07/22/20 08:00 Est GFR (CKD-EPI)AfAm 67.32 07/22/20 08:00 Est GFR (CKD-EPI)NonAf 58.08 07/22/20 08:00 Random Glucose 86 mg/dL (74-106) 07/22/20 08:00 Calcium 8.4 mg/dL (8.5-10.1) L 07/22/20 08:00 Total Bilirubin 0.4 mg/dL (0.2-1) 07/22/20 08:00 AST 16 U/L (15-37) 07/22/20 08:00 ALT 11 U/L (13-61) L 07/22/20 08:00 Alkaline Phosphatase 129 U/L (45-117) H 07/22/20 08:00 Total Protein 6.9 g/dl (6.4-8.2) 07/22/20 08:00 Albumin 3.0 g/dl (3.4-5.0) L 07/22/20 08:00 POC Urine HCG, Qual Negative 07/21/20 19:50 Syphilis Serology Reactive (NONREACTIVE) A* 07/22/20 08:00 RPR Titer Reactive 1:1 (NONREACTIVE) H D 07/22/20 08:00 COVID-19 ([facility]) Not detected (Not Detected) 07/21/20 10:20 treated for syphilis in the past Assessment: 07/24/20 17:18 withdrawal symptom Plan: continue detox methadone and librium regimen
[2020-07-24] MEDS: THIAMINE HCL 100 MG TABLET (FP) PO SCH (22:33)
[2020-07-24] MEDS: MINERAL OIL/PETROLAT/WATER TOPICAL CREAM 113 GM JAR TP SCH ×2 (22:34→22:59)
[2020-07-25] MEDS ORDERED: chlordiazePOXIDE HCL 10 MG CAPSULE PO SCH (05:00)
--- NOTE | 2020-07-25 09:06 | PN ---
[facility] CIWA - CIWA Score Nausea/Vomitin-No Nausea/No Vomiting Muscle Tremors: None Anxiety: 1-Mildly Anxious Agitation: 0-Normal Activity Paroxysmal Sweats: No Perspiration Orientation: 0-Oriented Tacttile Disturbances: 0-None Auditory Disturbances: 0-None Visual Disturbances: 0-None Headache: 0-None Present CIWA-Ar Total Score: 1 [facility] COWS - Scale Resting Pulse: 0= [place] 80 or Below Sweatin= No chills or Flushing Restless Observation: 0= Sits Still Pupil Size: 0= Normal to Room Light Bone or Joint Aches: 0= None Runny Nose/ Eye Tearin= None GI Upset > 30mins: 0= None Tremor Observation of Outstretched Hands: 0= None Yawning Observation: 0= None Anxiety or Irritability: 1=Feels Anxious/Irritable Goose Flesh Skin: 0=Smooth Skin COWS Score: 1 [facility] Progress Note (SOAP) Subjective: alert,no complaint Objective: 07/25/20 15:44 Vital Signs Temperature 97.1 F L 07/25/20 13:14 Pulse Rate 60 07/25/20 13:14 Respiratory Rate 20 07/25/20 13:14 Blood Pressure 108/68 07/25/20 13:14 O2 Sat by Pulse Oximetry (%) 97 07/25/20 13:14 Assessment: 07/25/20 15:45 no withdrawal symptom Plan: stable for discharge today,follow up with after care program as arrangement
[2020-07-25] MEDS ORDERED: METHADONE HCL 5 MG TABLET (FOR DETOX USE ONLY) PO ONE (10:00)
[2020-07-25] MEDS: AMOXICILLIN 500 MG CAPSULE (FP) PO SCH (10:35)
[2020-07-25] MEDS: PRENATAL VITAMINS W/ FOLIC ACID TABLET (FP) PO SCH (10:35)
[2020-07-25] MEDS: MINERAL OIL/PETROLAT/WATER TOPICAL CREAM 113 GM JAR TP SCH (10:37)
[2020-07-25] MEDS: FLUTICASONE PROP 0.05% 16 GM NASAL SPRAY NS SCH (10:37)
[2020-07-25 13:14] VITALS: BP 108/68; PULSE 60; TEMP 97.1
--- NOTE | 2020-07-25 15:53 | DS ---
[facility] Detox Discharge Summary Admission Date: 07/21/20 Discharge Date: 07/25/20 - History Present History: Alcohol Dependence, Cocaine Dependence, Opioid Dependence Additional Comments: alert,oriented x 3 lung clear on auscultation bilaterally no pain in the abdomen stable for discharge today no withdrawal symptom declined rehab follow up with after care program as arrangement ,methadone program as arrangement Pertinent Past History: asthma syphilis treated - Physical Exam Results Vital Signs: Vital Signs Temperature 97.1 F L 07/25/20 13:14 Pulse Rate 60 07/25/20 13:14 Respiratory Rate 07/25/20 13:14 Blood Pressure 108/68 07/25/20 13:14 O2 Sat by Pulse Oximetry (%) 97 07/25/20 13:14 Pertinent Admission Physical Exam Findings: withdrawal signs and symptom Vital Signs Temperature 97.1 F L 07/25/20 13:14 Pulse Rate 60 07/25/20 13:14 Respiratory Rate 07/25/20 13:14 Blood Pressure 108/68 07/25/20 13:14 O2 Sat by Pulse Oximetry (%) 97 07/25/20 13:14 Laboratory Last Values WBC 7.1 K/mm3 (4.0-10.0) 07/22/20 08:00 RBC 4.70 M/mm3 (3.60-5.2) 07/22/20 08:00 Hgb 14.2 GM/dL (10.7-15.3) 07/22/20 08:00 Hct 43.4 % (32.4-45.2) 07/22/20 08:00 MCV 92.3 fl (80-96) 07/22/20 08:00 MCH 30.3 pg (25.7-33.7) 07/22/20 08:00 MCHC 32.8 g/dl (32.0-36.0) 07/22/20 08:00 RDW 14.3 % (11.6-15.6) 07/22/20 08:00 Plt Count 343 K/MM3 (134-434) D 07/22/20 08:00 MPV 9.3 fl (7.5-11.1) D 07/22/20 08:00 Sodium 143 mmol/L (136-145) 07/22/20 08:00 Potassium 3.8 mmol/L (3.5-5.1) 07/22/20 08:00 Chloride 106 mmol/L (98-107) 07/22/20 08:00 Carbon Dioxide 32 mmol/L (21-32) 07/22/20 08:00 Anion Gap 5 MMOL/L (8-16) L 07/22/20 08:00 BUN 11.0 mg/dL (7-18) 07/22/20 08:00 Creatinine 1.1 mg/dL (0.55-1.3) 07/22/20 08:00 Est GFR (CKD-EPI)AfAm 67.32 07/22/20 08:00 Est GFR (CKD-EPI)NonAf 58.08 07/22/20 08:00 Random Glucose 86 mg/dL (74-106) 07/22/20 08:00 Calcium 8.4 mg/dL (8.5-10.1) L 07/22/20 08:00 Total Bilirubin 0.4 mg/dL (0.2-1) 07/22/20 08:00 AST 16 U/L (15-37) 07/22/20 08:00 ALT 11 U/L (13-61) L 07/22/20 08:00 Alkaline Phosphatase 129 U/L (45-117) H 07/22/20 08:00 Total Protein 6.9 g/dl (6.4-8.2) 07/22/20 08:00 Albumin 3.0 g/dl (3.4-5.0) L 07/22/20 08:00 POC Urine HCG, Qual Negative 07/21/20 19:50 Syphilis Serology Reactive (NONREACTIVE) A* 07/22/20 08:00 RPR Titer Reactive 1:1 (NONREACTIVE) H D 07/22/20 08:00 COVID-19 ([facility]) Not detected (Not Detected) 07/21/20 10:20 syphilis treated - Treatment Hospital Course: Detox Protocol Followed, Detoxed Safely, Responded well, Discharged Condition Good Patient has Accepted a Rehab Referral to: declined - Medication Discharge Medications: Ambulatory Orders Albuterol Sulfate Inhaler - [Ventolin Hfa Inhaler -] 2 inh PO Q4H 08/24/17 - Diagnosis (1) Opioid dependence with withdrawal Current Visit: No Status: Chronic (2) Alcohol dependence Current Visit: Yes Status: Chronic Qualifiers: Substance use status: uncomplicated Qualified Code(s): F10.20 - Alcohol dependence, uncomplicated (3) Cocaine dependence Current Visit: Yes Status: Chronic Qualifiers: Substance use status: uncomplicated Qualified Code(s): F14.20 - Cocaine dependence, uncomplicated (4) Nicotine dependence Current Visit: Yes Status: Chronic Qualifiers: Nicotine product type: cigarettes (5) Asthma Current Visit: No Status: Chronic (6) Bronchitis Current Visit: Yes Status: Acute - AMA Did Patient Leave Against Medical Advice: No
[2020-07-26] MEDS ORDERED: chlordiazePOXIDE HCL 10 MG CAPSULE PO ONE (05:00)
[2020-07-26] MEDS ORDERED: METHADONE HCL 5 MG TABLET (FOR DETOX USE ONLY) PO ONE (06:00)
[2020-07-26] MEDS ORDERED: METHADONE HCL 10 MG TABLET (FOR DETOX USE ONLY) PO ONE (10:00)
[2020-07-27] MEDS ORDERED: METHADONE HCL 5 MG TABLET (FOR DETOX USE ONLY) PO ONE (06:00)
== END 2020-07-25 16:05 | disposition home or self-care (01) | DRG 773 ==
LOC: YASAS 19:06 → Y3N 21:54
PROVIDERS: ADMIT Allergy & Immunology; ATTEND Allergy & Immunology
PROC: HZ2ZZZZ Detoxification Services for Substance Abuse Treatment (ICD-10-PCS; principal; 2020-07-21)
DX: F11.23 Opioid dependence with withdrawal (principal); F10.230 Alcohol dependence with withdrawal, uncomplicated; F14.20 Cocaine dependence, uncomplicated; F17.210 Nicotine dependence, cigarettes, uncomplicated; F41.9 Anxiety disorder, unspecified; F32.9 Major depressive disorder, single episode, unspecified; I10 Essential (primary) hypertension; J32.9 Chronic sinusitis, unspecified; J45.909 Unspecified asthma, uncomplicated; M54.5 Low back pain; M25.551 Pain in right hip; G89.29 Other chronic pain
CPT/HCPCS: 36415; 80053; 81025; 85027; 86593; 86780; 93005; 93010; U0003

== ENCOUNTER 2024-08-31 21:31 | Inpatient (IN) | payer OTHER ==
[2024-08-31 21:57] VITALS: BMI 32.3
[2024-08-31] MEDS ORDERED: NALOXONE (NARCAN) HCL 4 MG/0.1 ML SPRAY NS PRN (23:40)
[2024-08-31] MEDS ORDERED: MAGNESIUM HYDROX 2400MG/30ML ORAL SUSPENSION 30 ML CUP PO PRN (23:40)
[2024-08-31] MEDS ORDERED: guaiFENesin 600 MG TABLET.ER (FP) PO PRN (23:40)
[2024-08-31] MEDS ORDERED: ACETAMINOPHEN 325 MG TABLET (FP) PO PRN (23:40)
[2024-08-31] MEDS ORDERED: MAG HYDROX/AL HYDROX/SIMETH 30 ML UNIT-DOSE CUP PO PRN (23:40)
[2024-08-31] MEDS ORDERED: NICOTINE POLACRILEX 2 MG GUM BUC PRN (23:40)
[2024-08-31] MEDS ORDERED: POLYETHYLENE GLYCOL (HEALTHYLAX) 3350 17 GM PACKET PO PRN (23:40)
[2024-08-31] MEDS ORDERED: NALOXONE (NYS OPIOID OVERDOSE PROGRAM) 4 MG/0.1 ML SPRAY NS PRN (23:40)
[2024-08-31] MEDS ORDERED: BENZOCAINE/MENTHOL (CHLORASEPTIC ) LOZENGE MM PRN (23:40)
[2024-08-31] MEDS ORDERED: hydrOXYzine PAMOATE 25 MG CAPSULE (FP) PO PRN (23:40)
[2024-08-31] MEDS ORDERED: IBUPROFEN 400 MG TABLET (FP) PO PRN (23:40)
[2024-08-31] MEDS ORDERED: BENZONATATE 200 MG CAPSULE PO PRN (23:40)
[2024-08-31] MEDS ORDERED: LOPERAMIDE HCL 2 MG CAPSULE PO PRN (23:40)
[2024-09-01] MEDS: MELATONIN 5 MG TABLETS PO SCH (01:08)
[2024-09-01] MEDS ORDERED: TUBERCULIN PPD 5 TU/0.1ML SYRINGE (IN PATIENT USE ONLY) ID ONE (10:00)
[2024-09-01] MEDS: methaDONE HCL 40 MG DISPERSABLE TABLET PO SCH (10:14)
[2024-09-01] MEDS: PRENATAL VITAMINS W/ FOLIC ACID TABLET (FP) PO SCH (10:14)
[2024-09-01] MEDS: IBUPROFEN 600 MG TABLET (FP) PO PRN (10:14)
[2024-09-01] MEDS: NICOTINE 14 MG/24 HOURS TOPICAL PATCH TD SCH (10:15)
[2024-09-01] MEDS ORDERED: chlordiazePOXIDE HCL 25 MG CAPSULE PO PRN (10:20)
[2024-09-01] MEDS: chlordiazePOXIDE HCL 25 MG CAPSULE PO SCH (11:08)
[2024-09-01 12:10] LABS: HEMATOCRIT 41.5 % (32.4-45.2); HEMOGLOBIN 13.9 GM/dL (10.7-15.3); MCH 30.5 pg (25.7-33.7); MCHC 33.4 g/dl (32.0-36.0); MEAN CELL VOLUME 91.3 fl (80-96); MEAN PLT VOLUME 9.6 fl (7.5-11.1); PLATELET COUNT 237 10^3/uL (134-434); RBC 4.55 M/mm3 (3.60-5.2); WHITE BLOOD COUNT 5.4 K/mm3 (4.0-10.0)
[2024-09-01 12:20] LABS: ALBUMIN 3.1 g/dl (3.4-5.0); BLOOD UREA NITROGEN 19.6 mg/dL (7-18); CO2 30 mmol/L (21-32); GLUCOSE,RANDOM 94 mg/dL (74-106)
[2024-09-01 12:21] LABS: ANION GAP 3 mmol/L (4-13); CHLORIDE 108 mmol/L (98-107); POTASSIUM 4.2 mmol/L (3.5-5.1); SODIUM 141 mmol/L (136-145)
[2024-09-01 12:23] LABS: CREATININE 0.9 mg/dL (0.55-1.3); SGOT/AST 14 U/L (15-37); SGPT/ALT 13 U/L (13-61)
[2024-09-01 12:25] LABS: BILIRUBIN,TOTAL 0.2 mg/dL (0.2-1); TOT PROT 6.3 g/dl (6.4-8.2)
[2024-09-01 12:26] LABS: ALK PHOS 121 U/L (45-117)
[2024-09-01] MEDS: ALBUTEROL SO4 HFA INHALER IH PRN (15:48)
[2024-09-01 18:50] LABS: EPI CELLS >36 /uL (0-25.1); HYALINE CASTS 2 /uL (0-3.1); PH,URINE 5.5 (5.0-8.0); URINE APPEARANCE CLOUDY; URINE BACTERIA 2635 /uL (0-1359); URINE BILIRUBIN NEGATIVE (NEGATIVE); URINE COLOR YELLOW; URINE GLUCOSE (UA) NEGATIVE (NEGATIVE); URINE KETONE NEGATIVE (NEGATIVE); URINE LEUK ESTERASE 2+ (NEGATIVE); URINE NITRITE NEGATIVE (NEGATIVE); URINE PROTEIN NEGATIVE (NEGATIVE); URINE RBC 23 /uL (0-23.9); URINE WBC 237 /uL (0-25.8)
[2024-09-01] MEDS: THIAMINE 100 MG TABLET PO SCH (22:23)
[2024-09-02] MEDS: methaDONE HCL 10 MG TABLET PO ONE (10:16)
[2024-09-03] MEDS: chlordiazePOXIDE HCL 25 MG CAPSULE PO SCH (05:55)
[2024-09-03] MEDS ORDERED: methaDONE HCL 10 MG TABLET PO SCH (06:00)
[2024-09-03] MEDS: methaDONE 40 MG, methaDONE 20 MG PO SCH (06:17)
[2024-09-03] MEDS: NITROFURANTOIN MONOHYD/M-CRYST 100 MG CAPSULE PO SCH (09:56)
[2024-09-03 20:40] VITALS: RESP 16
[2024-09-04] MEDS ORDERED: chlordiazePOXIDE HCL 10 MG CAPSULE PO PRN
[2024-09-04] MEDS: chlordiazePOXIDE HCL 10 MG CAPSULE PO SCH (05:25)
[2024-09-04 08:58] VITALS: BP 130/99; PULSE 69; TEMP 97.6
[2024-09-05] MEDS ORDERED: chlordiazePOXIDE HCL 10 MG CAPSULE PO SCH (05:00)
[2024-09-06] MEDS ORDERED: chlordiazePOXIDE HCL 10 MG CAPSULE PO ONE (05:00)
== END 2024-09-04 10:54 | disposition home or self-care (01) | DRG 773 ==
LOC: YASAS 21:31 → Y3N 09-01 01:01
PROVIDERS: ADMIT Allergy & Immunology; ATTEND Surgery
PROC: HZ2ZZZZ Detoxification Services for Substance Abuse Treatment (ICD-10-PCS; principal; 2024-09-01)
DX: F10.230 Alcohol dependence with withdrawal, uncomplicated (principal); F11.20 Opioid dependence, uncomplicated; F13.20 Sedative, hypnotic or anxiolytic dependence, uncomplicated; F14.20 Cocaine dependence, uncomplicated; F17.210 Nicotine dependence, cigarettes, uncomplicated; F41.9 Anxiety disorder, unspecified; F32.A Depression, unspecified; F43.10 Post-traumatic stress disorder, unspecified; I10 Essential (primary) hypertension; J45.909 Unspecified asthma, uncomplicated; M54.42 Lumbago with sciatica, left side; G89.29 Other chronic pain; N39.0 Urinary tract infection, site not specified
CPT/HCPCS: 36415; 71046-TC-FY; 80053; 80305; 80307; 81003; 85027; 86593; 86780; 93005; 93010